=== PATIENT | male | born 1980 | race Caucasian/White ===

== ENCOUNTER 2022-03-16 19:49 | Inpatient (IN) | payer MEDICARE, OTHER ==
[~2022-03-16] VITALS: Ht 175.3 cm; Wt 204.1 kg
[2022-03-16 20:27] LABS: HEMOGLOBIN 15.1 gm/dl (14.0-17.5); RED BLOOD COUNT 4.76 M/UL (4.20-5.50); WHITE BLOOD COUNT 16.4 K/UL (4.5-11.0)
[2022-03-16 20:50] LABS: BUN/CREATININE RATIO 16 (0-10)
[2022-03-17 05:44] LABS: HEMOGLOBIN 15.5 gm/dl (14.0-17.5); RED BLOOD COUNT 4.96 M/UL (4.20-5.50); WHITE BLOOD COUNT 14.9 K/UL (4.5-11.0)
[2022-03-17 06:18] LABS: BUN/CREATININE RATIO 14 (0-10)
[2022-03-17] MEDS ORDERED: PROAIR HFA8.5 GM INH (10:02)
[2022-03-17] MEDS ORDERED: METFORMIN HCL500 MG PO (10:03)
[2022-03-17] MEDS ORDERED: IBU800 MG PO (10:03)
[2022-03-17] MEDS ORDERED: MONTELUKAST SOD10 MG PO (10:03)
[2022-03-18 06:34] LABS: HEMOGLOBIN 15.1 gm/dl (14.0-17.5); RED BLOOD COUNT 4.82 M/UL (4.20-5.50)
[2022-03-18 06:38] LABS: WHITE BLOOD COUNT 24.8 K/UL (4.5-11.0)
[2022-03-18 07:29] LABS: BUN/CREATININE RATIO 24 (0-10)
[2022-03-19 06:57] LABS: HEMOGLOBIN 14.4 gm/dl (14.0-17.5); RED BLOOD COUNT 4.76 M/UL (4.20-5.50)
[2022-03-19 06:58] LABS: WHITE BLOOD COUNT 16.6 K/UL (4.5-11.0)
[2022-03-19 08:42] LABS: BUN/CREATININE RATIO 25 (0-10)
[2022-03-19] MEDS ORDERED: MEDROL DOSEPAK 24 MG PO (11:15)
[2022-03-19] MEDS ORDERED: DOXYCYCLINE HY100 MG PO (11:15)
[2022-03-19] MEDS ORDERED: SPIRIVA HANDIH18 MCG INH (11:15)
[2022-03-19] MEDS ORDERED: METFORMIN HCL500 MG PO (11:15)
[2022-03-19] MEDS ORDERED: CEFDINIR300 MG PO (11:15)
== END 2022-03-19 11:38 | disposition home or self-care (01) | DRG 189 ==
LOC: ER1 19:49 → CDU 21:34 → PROG CARE 21:34 → M/S 03-18 14:43
PROVIDERS: Emergency Medicine; Internal Medicine; ADMIT Internal Medicine
PROC: 5A09357 Assistance with Respiratory Ventilation, Less than 24 Consecutive Hours, Continuous Positive Airway Pressure (ICD-10-PCS; principal; 2022-03-16)
PROC: 5A09357 Assistance with Respiratory Ventilation, Less than 24 Consecutive Hours, Continuous Positive Airway Pressure (ICD-10-PCS; 2022-03-17)
PROC: 5A09357 Assistance with Respiratory Ventilation, Less than 24 Consecutive Hours, Continuous Positive Airway Pressure (ICD-10-PCS; 2022-03-19)
DX: J96.21 Acute and chronic respiratory failure with hypoxia (principal); G92.8 Other toxic encephalopathy; E66.2 Morbid (severe) obesity with alveolar hypoventilation; J44.1 Chronic obstructive pulmonary disease with (acute) exacerbation; Z68.44 Body mass index [BMI] 60.0-69.9, adult; J96.22 Acute and chronic respiratory failure with hypercapnia; Z20.822 Contact with and (suspected) exposure to COVID-19; E09.65 Drug or chemical induced diabetes mellitus with hyperglycemia; T43.625A Adverse effect of amphetamines, initial encounter; T38.0X5A Adverse effect of glucocorticoids and synthetic analogues, initial encounter; F17.200 Nicotine dependence, unspecified, uncomplicated; Z82.49 Family history of ischemic heart disease and other diseases of the circulatory system; Z79.84 Long term (current) use of oral hypoglycemic drugs; Z79.899 Other long term (current) drug therapy
CPT/HCPCS: 36415; 36600; 71045; 80048; 80053; 80307; 81001; 82550; 82553; 82803; 82962; 83036; 83605; 83735; 83880; 84100; 84484; 85025; 85610; 85730; 86140; 87040; 87086; 93005; 94640; 94660; 94664; 94760; 96365; 96366; 96372; 96375; 96376; 99285; G0378; G0480; J0456; J0696; J1650; J1940; J2920; J2930; J7030; Q9967; U0002